=== PATIENT | female | born 1995 | race American Indian/Alaskan Native ===

== ENCOUNTER 2018-01-02 15:29 | Emergency (ER) | payer OTHER ==
--- NOTE | 2018-01-02 15:50 | PDOC ---
Rapid Medical Evaluation Time Seen by Provider: 01/02/18 15:46 Medical Evaluation: Allergies Allergy/AdvReac Type Severity Reaction Status Date / Time No Known Allergies Allergy Verified 11/11/17 07:59 I have performed a brief in-person evaluation of this patient. The patient presents with a chief complaint of: woke up with inability to move neck to left side. patient taking 200mg of motrin every 6-8 hours with little relief Pertinent physical exam findings: pain with movement towards left shoulder and pain with palpation of left trap muscle I have ordered the following: hcg The patient will proceed to the ED for further evaluation. Discharge Disposition - Diagnosis Torticollis, acute - Referrals - Patient Instructions - Post Discharge Activity
[2018-01-02 15:54] VITALS: BP 112/67; PULSE 66; TEMP 98.5; BMI 23.4
--- NOTE | 2018-01-02 17:07 | PDOC ---
*Physical Exam - Vital Signs Last Vital Signs Temp Pulse Resp BP Pulse Ox 98.5 F 66 19 112/67 98 01/02/18 15:46 01/02/18 15:46 01/02/18 15:46 01/02/18 15:46 01/02/18 15:46 - Physical Exam Comments: 01/02/18 17:01 General Appearance: Well-developed, well-nourished A&O 3 NAD Head: NC/AT Eyes: PERRL Fundi are normal and vision is grossly intact Ears: External auditory canals are normal and clear; tympanic membranes are normal; hearing is grossly intact Nose: Normal no discharge Throat and Oral cavity: Pharynx is clear without inflammation swelling exudate no lesions teeth and gingiva are normal Neck: Cervical spine range of motion is limited secondary to pain. There is no midline tenderness. Left paracervical musculature entrapment is tender with palpable spasm. Bilateral upper extremities are 5 out of 5 strength without any gross sensory or motor deficits. She is neurovascularly intact. 01/02/18 17:02 Cardiac: S1 and S2 without murmurs no peripheral edema cyanosis or pallor; extremities are warm and well-perfused; capillary refill is less than 2 seconds without carotid bruits Lungs: CTA and Percussion no rales or rhonchi or wheezing breath sounds are full bilaterally Abdomen: Positive bowel sounds; soft nondistended, nontender, no guarding or rebound tenderness; no masses Musculoskeletal; Adequately aligned spine range of motion intact to spine and extremities Neurologic: Cranial nerves II-XII are grossly intact strength and sensation are symmetric and intact cerebellar testing is negative Skin: Normal color and temperature normal texture turgor no lesions or eruptions *DC/Admit/Observation/Transfer Diagnosis at time of Disposition: Torticollis, acute - Discharge Dispostion Disposition: HOME Condition at time of disposition: Stable Admit: No - Referrals Referrals: Jonathan Butler MD [Staff Physician] - - Patient Instructions Printed Discharge Instructions: [facility] for Torticollis Additional Instructions: Return to the emergency room if symptoms worsen or go unresolved. - Post Discharge Activity
== END 2018-01-02 17:35 | disposition home or self-care (01) ==
LOC: JERFT 15:29
DX: M43.6 Torticollis (principal)
CPT/HCPCS: 84703; 99281-25